=== PATIENT | male | born 1955 | race Caucasian/White ===

== ENCOUNTER 2024-02-20 11:53 | Inpatient (IN) ==
[2024-02-20] MEDS: Albuterol/Ipratropium NEB.SOL (2.5/0.5 MG) 3 ML NEB.SOLN INH ONE (13:15)
[2024-02-20 13:48] LABS: ABS Basophils 0.1 10^3/uL (0.0-0.1); ABS Eosinophils 0.2 10^3/uL (0.0-0.5); ABS Lymphocytes 0.7 10^3/uL (1.0-4.8); ABS Monocytes 0.4 10^3/uL (0.0-1.1); ABS Neutrophils 7.3 10^3/uL (1.5-7.6); ABS Nucleated RBC 0.01 10^3/ul; Eosinophil % 2.8 %; Hematocrit 39.7 % (38-53); Hemoglobin 13.6 g/dL (13.2-16.3); Lymphocyte % 7.9 %; Mean Corpuscular Hemoglobin 31.4 pg (27-33); Mean Corpuscular Hgb Conc 34.2 g/dL (31-36); Mean Corpuscular Volume 91.6 fL (80-97); Mean Platelet Volume 8.8 fL (7.5-11.2); Nucleated Red Blood Cells % 0.1 %/100WBC (0.0-0.8); Platelet Count 200 10^3/uL (150-450); Red Blood Count 4.33 10^6/uL (4.06-5.63); White Blood Count 8.7 10^3/uL (3.6-10.2)
[2024-02-20 15:06] LABS: Albumin 4.1 g/dL (3.2-5.2); Albumin/Globulin Ratio 1.4 (1-3); Calcium 9.4 mg/dL (8.6-10.3); Creatinine, Serum 0.68 mg/dL (0.67-1.17); Potassium 3.9 mmol/L (3.5-5.0); Total Bilirubin 0.8 mg/dL (0.2-1.0); Total Protein 7.1 g/dL (6.4-8.9); eGFR CKD-EPI 101.9 (>60)
[2024-02-20 15:09] LABS: High Sensitivity Troponin 1 Hr 4 pg/mL (<20)
[2024-02-20] MEDS: Iohexol 350 (CONTRAST) 500 ML MDV IV ONE (15:42)
[2024-02-20 18:03] LABS: Venous Bicarbonate HCO3 22.7 mmol/L (24-28)
[2024-02-20 21:05] LABS: C Reactive Protein 12.38 mg/L (<8.01)
[2024-02-20] MEDS: cefTRIAXone 1 gm/50 mL D5W 1 GM/50 ML BAG IV SCH (21:41)
[2024-02-20] MEDS: methylPREDNISolone SOD SUCC 40 mg/ml 1 ml VIAL IV ONE (21:42)
[2024-02-20] MEDS: Enoxaparin 100 MG/ML SYR SUBCUT SCH (21:45)
[2024-02-20] MEDS: Albuterol/Ipratropium NEB.SOL (2.5/0.5 MG) 3 ML NEB.SOLN INH SCH (22:08)
[2024-02-21 00:36] LABS: Erythrocyte Sed Rate 11 mm/Hr (0-19)
[2024-02-21 05:06] LABS: ABS Lymphocytes 0.5 10^3/uL (1.0-4.8); ABS Monocytes 0.2 10^3/uL (0.0-1.1); ABS Neutrophils 10.8 10^3/uL (1.5-7.6); Hematocrit 40.6 % (38-53); Hemoglobin 13.5 g/dL (13.2-16.3); Lymphocyte % 3.9 %; Mean Corpuscular Hemoglobin 30.6 pg (27-33); Mean Corpuscular Hgb Conc 33.3 g/dL (31-36); Mean Platelet Volume 8.8 fL (7.5-11.2); Platelet Count 216 10^3/uL (150-450); Red Blood Count 4.42 10^6/uL (4.06-5.63); Red Cell Distribution Width 14.2 % (12-17); White Blood Count 11.5 10^3/uL (3.6-10.2)
[2024-02-21 06:04] LABS: ALT 15 U/L (7-52); Albumin 3.9 g/dL (3.2-5.2); Albumin/Globulin Ratio 1.2 (1-3); Alkaline Phosphatase 93 U/L (35-149); Anion Gap 11 mmol/L (2-16); Blood Urea Nitrogen 12 mg/dL (6-24); CO2 Carbon Dioxide 26 mmol/L (22-32); Calcium 9.3 mg/dL (8.6-10.3); Chloride 100 mmol/L (101-111); Creatinine, Serum 0.64 mg/dL (0.67-1.17); Globulin 3.2 g/dL (2-4); Glucose 140 mg/dL (70-100); Sodium 137 mmol/L (135-145); Total Bilirubin 0.5 mg/dL (0.2-1.0); Total Protein 7.1 g/dL (6.4-8.9); eGFR CKD-EPI 103.8 (>60)
[2024-02-21 08:07] LABS: Magnesium 1.9 mg/dL (1.9-2.7)
[2024-02-21 08:43] LABS: Potassium, Whole Blood 4.1 mmol/L (3.4-4.5)
[2024-02-21] MEDS ORDERED: Albuterol/Ipratropium NEB.SOL (2.5/0.5 MG) 3 ML NEB.SOLN INH PRN (13:18)
[2024-02-21] MEDS: cefTRIAXone 1 gm/50 mL D5W 1 GM/50 ML BAG IV SCH (20:25)
[2024-02-22 06:19] LABS: ABS Lymphocytes 1.4 10^3/uL (1.0-4.8); ABS Neutrophils 9.7 10^3/uL (1.5-7.6); ABS Nucleated RBC 0.01 10^3/ul; Eosinophil % 0.1 %; Hematocrit 38.8 % (38-53); Lymphocyte % 11.2 %; Mean Corpuscular Hemoglobin 30.8 pg (27-33); Mean Corpuscular Hgb Conc 33.5 g/dL (31-36); Mean Corpuscular Volume 92.1 fL (80-97); Mean Platelet Volume 9.2 fL (7.5-11.2); Nucleated Red Blood Cells % 0.1 %/100WBC (0.0-0.8); Platelet Count 209 10^3/uL (150-450); Red Blood Count 4.22 10^6/uL (4.06-5.63); White Blood Count 12.1 10^3/uL (3.6-10.2)
[2024-02-22 06:35] LABS: Calcium 9.5 mg/dL (8.6-10.3); Creatinine, Serum 0.67 mg/dL (0.67-1.17); Magnesium 2.2 mg/dL (1.9-2.7); Potassium 3.8 mmol/L (3.5-5.0); eGFR CKD-EPI 102.3 (>60)
[2024-02-22] MEDS: Sulfur Hexaflouride MICROSPHR 25 MG VIAL IV ONE (07:04)
[2024-02-22] MEDS: Potassium Chlor 20 meq TAB.ER PO ONE (08:44)
[2024-02-23 10:03] LABS: Hematocrit 38.6 % (38-53); Mean Corpuscular Hemoglobin 31.4 pg (27-33); Mean Corpuscular Hgb Conc 33.5 g/dL (31-36); Mean Corpuscular Volume 93.6 fL (80-97); Mean Platelet Volume 9.3 fL (7.5-11.2); Platelet Count 198 10^3/uL (150-450); Red Blood Count 4.13 10^6/uL (4.06-5.63); White Blood Count 9.4 10^3/uL (3.6-10.2)
[2024-02-23 10:40] LABS: Calcium 8.9 mg/dL (8.6-10.3); Creatinine, Serum 0.63 mg/dL (0.67-1.17); Potassium 3.6 mmol/L (3.5-5.0); eGFR CKD-EPI 104.3 (>60)
[2024-02-23 14:17] VITALS: BP 131/75
== END 2024-02-23 15:33 | disposition home or self-care (01) | DRG 189 ==
LOC: EDHOLD 11:53 → ED 11:53 → SUATTDRO 20:30 → SSU 02-21 07:36
PROVIDERS: ADMIT Student in an Organized Health Care Education/Training Program; ATTEND Hospitalist